=== PATIENT | male | born 1965 | race Caucasian/White ===

== ENCOUNTER 2024-10-27 14:06 | Emergency (ER) | payer OTHER ==
[~2024-10-27] VITALS: Ht 167.6 cm; Wt 109.0 kg
[2024-10-27 14:13] VITALS: TEMP 36.9; O2SAT 98
[2024-10-27] MEDS: HYDROCODONE/ACETAMINOPHEN 10/325MG TABLET PO ONE (16:07)
[2024-10-27] MEDS ORDERED: IBUP-2030 MT (17:34)
[2024-10-27] MEDS ORDERED: HYDR-4001 MT (17:34)
[2024-10-27] MEDS: TETANUS, DIPHTHERIA, PERTUSSIS VAC/PF 0.5ML (>10YR OLD) IM ONE (18:24)
[2024-10-27] MEDS: BACITRACIN ZINC OINT UDPKT TOP ONE (18:24)
[2024-10-27 18:25] VITALS: BP 171/90; PULSE 77; RESP 12; O2SAT 100
== END 2024-10-27 18:25 | disposition home or self-care (01) ==
LOC: ER 14:06
DX: S00.91XA Abrasion of unspecified part of head, initial encounter (principal); M48.02 Spinal stenosis, cervical region; M25.511 Pain in right shoulder; M25.512 Pain in left shoulder; I10 Essential (primary) hypertension; W01.0XXA Fall on same level from slipping, tripping and stumbling without subsequent striking against object, initial encounter; Y93.89 Activity, other specified; Y92.89 Other specified places as the place of occurrence of the external cause; Y99.8 Other external cause status
CPT/HCPCS: 73030; 90471; 90715; 99285